=== PATIENT | female | born 1940 | race Caucasian/White ===

== ENCOUNTER → 2016-12-13 | Outpatient (REF) | payer MEDICARE, OTHER ==
[~2016-12-13] MED LIST: /ADVA50050; /MOXI40TA; ACIPHEX; ADVA115A INH; ATROVENT INH; CALCARB; DYAZ37.5; FOLI1TAB; FOLI1TAB2 PO; ICAPCAP PO; INFL10VL IV; MAXZTAB PO; METH2.5TA PO; METHOTREXATE SODIUM; PRED10TA PO; REMICADE; SIMV20TA2; SIMV20TA2 PO; SYNT50TA PO; TYLE650T25 PO; VENTOLIN NEB INH; VERA180C PO; VERAPAMIL; VIBR100C PO; VIT D; XOPEAER INH
== END ==
LOC: M SFHCPLAZ 14:15
PROVIDERS: ATTEND Nurse Practitioner Family
DX: E78.5 Hyperlipidemia, unspecified (principal); E03.9 Hypothyroidism, unspecified; Z53.8 Procedure and treatment not carried out for other reasons

== ENCOUNTER → 2017-05-18 | Outpatient (REF) | payer MEDICARE, OTHER ==
[~2017-05-18] MED LIST changes: -FOLI1TAB2 PO; +FOLI1TAB4 PO; +LEVAINH INH; -XOPEAER INH
[2017-05-19 12:35] LABS: ALBUMIN 3.4 GM/DL (3.2-5.2); ALBUMIN/GLOBULIN RATIO 0.77 (1.00-1.93); ALKALINE PHOSPHATASE 101 U/L (45-117); ALT/SGPT 12 U/L (12-78); ANION GAP 7 MEQ/L (8-16); AST/SGOT 18 U/L (15-37); BILIRUBIN,TOTAL 0.3 MG/DL (0.2-1.0); BLOOD UREA NITROGEN 14 MG/DL (7-18); CALCIUM LEVEL 9.5 MG/DL (8.8-10.2); CARBON DIOXIDE LEVEL 34 MEQ/L (21-32); CHLORIDE LEVEL 103 MEQ/L (98-107); CREATININE FOR GFR 0.86 MG/DL (0.55-1.02); FREE T4 0.88 NG/DL (0.76-1.46); GLOMERULAR FILTRATION RATE > 60.0 (>39); GLUCOSE, FASTING 93 MG/DL (83-110); POTASSIUM SERUM 3.6 MEQ/L (3.5-5.1); SODIUM LEVEL 144 MEQ/L (136-145); TOTAL PROTEIN 7.8 GM/DL (6.4-8.2)
== END ==
LOC: M SFHCPLAZ 14:15 → M SFHCCLAY 14:17
PROVIDERS: ATTEND Nurse Practitioner Family
DX: E78.5 Hyperlipidemia, unspecified (principal); E03.9 Hypothyroidism, unspecified

== ENCOUNTER → 2017-05-18 | Outpatient (CLI) | payer MEDICARE, OTHER ==
--- NOTE | 2017-05-18 18:20 | REP ---
CHEST, TWO VIEW: Two views of the chest are performed. Comparison 04/20/2016. Ill-defined parenchymal opacity is again seen in the right lower lobe. This has increased since the prior exam. Scattered interstitial fibrotic changes are seen elsewhere throughout both lungs with mild biapical pleural thickening. Heart is upper limits of normal in size. There is calcification and tortuosity of the thoracic aorta. The mediastinal silhouette is unchanged. There are mild degenerative changes of the spine. IMPRESSION: Increased ill-defined parenchymal opacity right lower lobe when compared to the prior study of 04/20/2017. Further evaluation may be made with chest CT.
== END ==
LOC: M CLY 14:22
PROVIDERS: ATTEND Internal Medicine Pulmonary Disease
DX: J44.9 Chronic obstructive pulmonary disease, unspecified (principal); E04.9 Nontoxic goiter, unspecified

== ENCOUNTER → 2017-06-16 | Outpatient (CLI) | payer MEDICARE, OTHER ==
--- NOTE | 2017-06-16 15:23 | REP ---
CT of the chest without IV contrast: Comparisons are the chest CT dated 06/21/2005 and PA and lateral plain film study dated 05/18/2017. There is marked septal thickening accompanied by numerous bulla throughout the entire right lower lobe and to a lesser extent upper lobe and lingula as a distinct change from the comparison CT, compatible with chronic fibrosis, acute interstitial infiltrates or acute on chronic disease. There is no pleural effusion. There is no focal infiltrates. There is no mediastinal lymph node enlargement. No axillary lymph node enlargement. The study is insensitive for hilar lymph node enlargement in the absence of intravenous contrast . There is a 8 mm nodule in the right middle lobe on image 69, not present previously. The unenhanced thoracic aorta is unremarkable. Cardiac size is normal. There is calcified atheroma in the coronary arteries. The visualized portions of the is liver, gallbladder, pancreas and spleen are unremarkable. There is calcified atheroma in the splenic artery and abdominal aorta. There is no adrenal mass. Impression: Advanced fibrosis versus interstitial infiltrates versus combination accompanied by numerous bulla in the right lower lobe as and to a lesser degree in the right upper lobe and lingula a distinct interval change 8 mm nodule in the lingula, not present previously. Signed by Raf Wilder MD 06/16/2017 03:14 P
== END ==
LOC: M RAD 10:09
PROVIDERS: ATTEND Internal Medicine Pulmonary Disease
DX: R91.8 Other nonspecific abnormal finding of lung field (principal)

== ENCOUNTER → 2017-09-09 | Outpatient (REF) | payer MEDICARE, OTHER ==
[~2017-09-09] MED LIST changes: +FISH100049 PO; +HYDR25TAB PO; +LIPI20TA PO; +PROAAER10 INH; +SULF500T2 PO; +TYLE325T5 PO; +VITA100067 PO
[2017-09-09 12:43] LABS: ALBUMIN 3.4 GM/DL (3.2-5.2); ALBUMIN/GLOBULIN RATIO 0.85 (1.00-1.93); ALKALINE PHOSPHATASE 84 U/L (45-117); ALT/SGPT 21 U/L (12-78); ANION GAP 10 MEQ/L (8-16); AST/SGOT 25 U/L (7-37); BILIRUBIN,TOTAL 0.3 MG/DL (0.2-1.0); BLOOD UREA NITROGEN 16 MG/DL (7-18); CALCIUM LEVEL 9.2 MG/DL (8.8-10.2); CARBON DIOXIDE LEVEL 27 MEQ/L (21-32); CHLORIDE LEVEL 104 MEQ/L (98-107); CHOLESTEROL LEVEL 194 MG/DL (<200); CREATININE FOR GFR 0.87 MG/DL (0.55-1.02); FREE T4 1.19 NG/DL (0.76-1.46); GLOMERULAR FILTRATION RATE > 60.0 (>39); GLUCOSE, FASTING 98 MG/DL (83-110); POTASSIUM SERUM 3.8 MEQ/L (3.5-5.1); SODIUM LEVEL 141 MEQ/L (136-145); TOTAL PROTEIN 7.4 GM/DL (6.4-8.2); TRIGLYCERIDES LEVEL 83 MG/DL (<150)
== END ==
LOC: M SFHCPLAZ 08:38
PROVIDERS: ATTEND Nurse Practitioner Family
DX: I10 Essential (primary) hypertension (principal); E03.9 Hypothyroidism, unspecified; E78.5 Hyperlipidemia, unspecified

== ENCOUNTER → 2017-09-15 | Day surgery (SDC) | payer MEDICARE, OTHER ==
[~2017-09-15] VITALS: Ht 157.5 cm; Wt 72.9 kg
[~2017-09-15] MED LIST changes: +ACETYLCHOLINE OPHTH SOLN 1% 2ML (MIOCHOL-E) As Ordered ONE; +BALANCED SALT IRRIGATION SOLUTION 500ML BAG (FOR OR EYE MACHINE) As Ordered ONE; +CEFUROXIME 1MG/0.1ML INTRACAMERAL INJ As Ordered ONE; +DUOVISC (0.50ML VISCOAT/0.55ML PROVISC) OPHTH KIT As Ordered ONE; +LIDOCAINE 0.75%/EPINEPHRINE 0.025% IN BSS 1ML SYR INTRACAMERAL (OR ONLY) As Ordered ONE; +MIDAZOLAM INJ 2 MG/2 ML VIAL (J2250) As Ordered ONE; +OFLOXACIN 0.3 % (OCUFLOX) OPTH SOL 5ML OS ONE; +PHENYLEPHRINE 2.5% OPHTH SOL 2ML OS ONE; +POVIDONE-IODINE 5% OPHTH PREP SOL 30ML As Ordered ONE; +PROPARACAINE 0.5% OPHTH SOL 15ML OS ONE; +TROPICAMIDE 1% OPHTH SOLN 2ML OS ONE; +fentaNYL 100 MCG/2 ML INJECTION (J3010) As Ordered ONE
[2017-09-15 14:10] VITALS: BP 137/77
--- NOTE | 2017-09-20 13:55 | RO ---
DATE OF PROCEDURE: 09/15/2017 PREOPERATIVE DIAGNOSIS: Visually significant nuclear sclerotic cataract left eye. POSTOPERATIVE DIAGNOSIS: Visually significant nuclear sclerotic cataract left eye. PROCEDURE: Cataract extraction with use of phacoemulsification and placement of intraocular lens, AU00T0, 21.0, left eye. SURGEON: Abilio Tomas DO [employer] OPERATOR: ANESTHESIA: Local with monitored anesthesia care (MAC). COMPLICATIONS: None. POSTOPERATIVE CONDITION: Stable. INDICATION FOR SURGERY: Blurred vision left eye affecting patient's activities of daily living. DESCRIPTION OF PROCEDURE: The patient was seen in the preoperative area and properly identified. The correct operative eye was identified and marked. Attention was turned to that eye. The patient received topical antibiotics in the preoperative area. The patient then received topical dilating drops consisting of tropicamide and phenylephrine. The patient was then transferred to the operating room. The correct side was re-identified. The patient received topical anesthetics and antibiotics on the surface of the eye. The eye was prepped and draped in a sterile fashion. The upper and lower eyelids were isolated with Tegaderm tape, and the lids were held open with an adjustable speculum. Using a sideport blade, a paracentesis incision was made. Intraocular preservative-free lidocaine was then injected into the anterior chamber. Viscoelastic was then injected into the anterior chamber through the paracentesis. Using a 2.4 mm sharp-tipped keratome, the anterior chamber was entered via a temporal clear corneal incision. A continuous curvilinear capsulorrhexis was created with the aid of a 26-gauge cystotome and Utrata forceps. Hydrodissection was performed with balanced salt solution (BSS) on a blunt cannula until the nucleus was freely mobile. The crystalline lens was phacoemulsified and aspirated. Additional cohesive viscoelastic was placed into the capsular bag to deepen it. An AU00T0 lens was placed into the capsular bag and confirmed by visualizing the continuous curvilinear capsulorrhexis. Additional irrigation and aspiration was used to remove cortical material and remaining viscoelastic. The clear corneal incision was hydrated with BSS on a blunt cannula. The lens was well positioned. The incisions were then tested for leaks and found to be negative. The eye was then palpated for appropriate pressure and adjusted accordingly with BSS. The eyelid speculum was carefully removed. A shield was placed over the eye. The patient tolerated the procedure well and was discharged to the recovery unit in a stable condition. [facility]
== END | disposition home or self-care (01) ==
LOC: M SDC 10:27
PROVIDERS: ATTEND Ophthalmology
DX: H25.12 Age-related nuclear cataract, left eye (principal); E03.9 Hypothyroidism, unspecified; M06.9 Rheumatoid arthritis, unspecified; E78.5 Hyperlipidemia, unspecified; H91.92 Unspecified hearing loss, left ear; M51.37 Other intervertebral disc degeneration, lumbosacral region; M15.0 Primary generalized (osteo)arthritis; E55.9 Vitamin D deficiency, unspecified; J44.9 Chronic obstructive pulmonary disease, unspecified; R32 Unspecified urinary incontinence; Z88.6 Allergy status to analgesic agent; Z79.899 Other long term (current) drug therapy; Z90.710 Acquired absence of both cervix and uterus; Z87.891 Personal history of nicotine dependence
CPT/HCPCS: 66984; J2250; J3010; V2632

== ENCOUNTER 2017-09-29 09:09 | Day surgery (SDC) | payer MEDICARE, OTHER ==
[~2017-09-29 09:09] MED LIST changes: -/ADVA50050; -/MOXI40TA; -ACETYLCHOLINE OPHTH SOLN 1% 2ML (MIOCHOL-E) As Ordered ONE; -ACIPHEX; -ADVA115A INH; -ATROVENT INH; -BALANCED SALT IRRIGATION SOLUTION 500ML BAG (FOR OR EYE MACHINE) As Ordered ONE; -CALCARB; -CEFUROXIME 1MG/0.1ML INTRACAMERAL INJ As Ordered ONE; -DUOVISC (0.50ML VISCOAT/0.55ML PROVISC) OPHTH KIT As Ordered ONE; -DYAZ37.5; -FISH100049 PO; -FOLI1TAB; -FOLI1TAB4 PO; -HYDR25TAB PO; -ICAPCAP PO; -INFL10VL IV; -LEVAINH INH; -LIDOCAINE 0.75%/EPINEPHRINE 0.025% IN BSS 1ML SYR INTRACAMERAL (OR ONLY) As Ordered ONE; -LIPI20TA PO; -MAXZTAB PO; -METH2.5TA PO; -METHOTREXATE SODIUM; +MIDAZOLAM INJ 2 MG/2 ML VIAL (J2250) As Ordered; -MIDAZOLAM INJ 2 MG/2 ML VIAL (J2250) As Ordered ONE; -OFLOXACIN 0.3 % (OCUFLOX) OPTH SOL 5ML OS ONE; -PHENYLEPHRINE 2.5% OPHTH SOL 2ML OS ONE; -POVIDONE-IODINE 5% OPHTH PREP SOL 30ML As Ordered ONE; -PRED10TA PO; -PROAAER10 INH; -PROPARACAINE 0.5% OPHTH SOL 15ML OS ONE; -REMICADE; -SIMV20TA2; -SIMV20TA2 PO; -SULF500T2 PO; -SYNT50TA PO; -TROPICAMIDE 1% OPHTH SOLN 2ML OS ONE; -TYLE325T5 PO; -TYLE650T25 PO; -VENTOLIN NEB INH; -VERA180C PO; -VERAPAMIL; -VIBR100C PO; -VIT D; -VITA100067 PO; -fentaNYL 100 MCG/2 ML INJECTION (J3010) As Ordered ONE
[2017-09-29] MEDS: OFLOXACIN 0.3 % (OCUFLOX) OPTH SOL 5ML OD (09:40)
[2017-09-29] MEDS: PROPARACAINE 0.5% OPHTH SOL 15ML OD (09:45)
[2017-09-29] MEDS: PHENYLEPHRINE 2.5% OPHTH SOL 2ML OD (09:50)
[2017-09-29] MEDS: TROPICAMIDE 1% OPHTH SOLN 2ML OD (09:55)
[2017-09-29] MEDS ORDERED: MIDAZOLAM INJ 2 MG/2 ML VIAL (J2250) As Ordered (10:59)
[2017-09-29] MEDS: POVIDONE-IODINE 5% OPHTH PREP SOL 30ML As Ordered (10:59)
[2017-09-29] MEDS: BALANCED SALT IRRIGATION SOLUTION 500ML BAG (FOR OR EYE MACHINE) As Ordered (11:03)
[2017-09-29] MEDS: CEFUROXIME 1MG/0.1ML INTRACAMERAL INJ As Ordered (11:03)
[2017-09-29] MEDS: DUOVISC (0.50ML VISCOAT/0.55ML PROVISC) OPHTH KIT As Ordered (11:03)
[2017-09-29] MEDS: ACETYLCHOLINE OPHTH SOLN 1% 2ML (MIOCHOL-E) As Ordered (11:03)
[2017-09-29] MEDS: LIDOCAINE 0.75%/EPINEPHRINE 0.025% IN BSS 1ML SYR INTRACAMERAL (OR ONLY) As Ordered (11:03)
[2017-09-29] MEDS ORDERED: ACETAMINOPHEN TAB 650MG DOSE (2X325MG) As Ordered (11:52)
[2017-09-29] MEDS: ACETAMINOPHEN TAB 650MG DOSE (2X325MG) PO (12:00)
[2017-09-29] MEDS ORDERED: ONDANSETRON 4MG/2ML VIAL (J2405) IV (12:00)
== END 2017-09-29 12:17 | disposition home or self-care (01) ==
LOC: M SDC 09:09
DX: H25.11 Age-related nuclear cataract, right eye (principal); M06.9 Rheumatoid arthritis, unspecified; E03.9 Hypothyroidism, unspecified; I10 Essential (primary) hypertension; E78.5 Hyperlipidemia, unspecified; Z87.891 Personal history of nicotine dependence; M51.37 Other intervertebral disc degeneration, lumbosacral region; E55.9 Vitamin D deficiency, unspecified; M19.90 Unspecified osteoarthritis, unspecified site; J44.9 Chronic obstructive pulmonary disease, unspecified; R32 Unspecified urinary incontinence; Z88.8 Allergy status to other drugs, medicaments and biological substances; Z79.899 Other long term (current) drug therapy; Z79.51 Long term (current) use of inhaled steroids
CPT/HCPCS: 66984

== ENCOUNTER 2017-12-11 11:32 | Emergency (ER) | payer MEDICARE, OTHER ==
[2017-12-11] MEDS ORDERED: FIORICET TAB PO (11:45)
[2017-12-11] MEDS: ASPIRIN 81 MG CHEW TABLET PO (11:45)
[2017-12-11 12:02] LABS: BASO % 0.4 % (0.0-1.0); EOS # 0.1 10^3/uL (0.0-0.50); EOS % 1.1 % (0.0-3.0); HEMATOCRIT 33.3 % (36.0-47.0); HEMOGLOBIN 10.5 g/dl (12.0-16.0); IMMATURE GRANULOCYTE % 0.4 % (0-3.0); LYMPH # 1.4 10^3/uL (1.5-4.5); LYMPH % 14.5 % (24.0-44.0); MEAN CORPUSCULAR HEMOGLOBIN 29.2 pg (27.0-33.0); MEAN CORPUSCULAR HGB CONC 31.5 g/dl (32.0-36.5); MEAN CORPUSCULAR VOLUME 92.8 fl (80.0-96.0); MONO # 0.6 10^3/uL (0.0-0.8); MONO % 6.6 % (0.0-5.0); NEUTROPHILS # 7.2 10^3/uL (1.8-7.7); PLATELET COUNT, AUTOMATED 305 10^3/uL (150-450); RED BLOOD COUNT 3.59 10^6/uL (4.00-5.40); RED CELL DISTRIBUTION WIDTH 17.1 % (11.5-14.5); WHITE BLOOD COUNT 9.4 10^3/uL (4.0-10.0)
[2017-12-11 12:24] LABS: ANION GAP 10 MEQ/L (8-16); BLOOD UREA NITROGEN 14 MG/DL (7-18); CALCIUM LEVEL 9.1 MG/DL (8.8-10.2); CARBON DIOXIDE LEVEL 30 MEQ/L (21-32); CHLORIDE LEVEL 102 MEQ/L (98-107); CPK CREATINE PHOSPHOKINASE 77 U/L (26-192); CREATININE FOR GFR 0.95 MG/DL (0.55-1.30); GLOMERULAR FILTRATION RATE > 60.0 (>39); GLUCOSE, FASTING 139 MG/DL (70-100); POTASSIUM SERUM 3.1 MEQ/L (3.5-5.1); SODIUM LEVEL 142 MEQ/L (136-145); TROPONIN I 0.55 NG/ML (< 0.10)
[2017-12-11 12:25] LABS: ALBUMIN/GLOBULIN RATIO 0.67 (1.00-1.93); ALKALINE PHOSPHATASE 122 U/L (45-117); ALT/SGPT 32 U/L (12-78); AST/SGOT 36 U/L (7-37); BILIRUBIN,DIRECT 0.1 MG/DL (0.0-0.2); BILIRUBIN,TOTAL 0.5 MG/DL (0.2-1.0); CK-MB VALUE MASS 2.4 NG/ML (0.0-3.6); MB/CK RELATIVE INDEX 3.11 (< OR =4); NT-PRO BNP 11782 PG/ML (<450); TOTAL PROTEIN 7.5 GM/DL (6.4-8.2)
[2017-12-11] MEDS: FUROSEMIDE 100 MG/10 ML VIAL (J1940) IV (13:50)
[2017-12-11] MEDS ORDERED: ISOVUE-370 76% 100ML VIAL (Q9967) As Ordered (14:05)
[2017-12-11 14:16] LABS: CPK CREATINE PHOSPHOKINASE 100 U/L (26-192); TROPONIN I 0.91 NG/ML (< 0.10)
[2017-12-11 19:04] LABS: ALBUMIN 2.9 GM/DL (3.2-5.2); ANION GAP 10 MEQ/L (8-16); BLOOD UREA NITROGEN 13 MG/DL (7-18); CALCIUM LEVEL 8.4 MG/DL (8.8-10.2); CARBON DIOXIDE LEVEL 32 MEQ/L (21-32); CHLORIDE LEVEL 100 MEQ/L (98-107); CREATININE FOR GFR 0.85 MG/DL (0.55-1.30); GLOMERULAR FILTRATION RATE > 60.0 (>39); GLUCOSE, FASTING 111 MG/DL (70-100); MAGNESIUM LEVEL 1.8 MG/DL (1.8-2.4); PHOSPHORUS LEVEL 3.5 MG/DL (2.5-4.9); POTASSIUM SERUM 3.2 MEQ/L (3.5-5.1); SODIUM LEVEL 142 MEQ/L (136-145)
[2017-12-11] MEDS: CLOPIDOGREL 75 MG TAB PO (19:20)
[2017-12-11] MEDS: HEPARIN SOD (PORCINE) 5000 UNITS/ML VIAL IV (19:21)
[2017-12-11] MEDS: HEPARIN DRIP 25,000 UNITS in APPROPRIATE DILUENT 1 EA IV (19:21)
== END 2017-12-11 20:24 | disposition short-term general hospital (02) ==
LOC: M ED 11:32
DX: I21.4 Non-ST elevation (NSTEMI) myocardial infarction (principal); I24.9 Acute ischemic heart disease, unspecified; I50.9 Heart failure, unspecified; I34.0 Nonrheumatic mitral (valve) insufficiency; J90 Pleural effusion, not elsewhere classified; R94.31 Abnormal electrocardiogram [ECG] [EKG]; I11.0 Hypertensive heart disease with heart failure; J44.9 Chronic obstructive pulmonary disease, unspecified; Z87.891 Personal history of nicotine dependence; Z88.8 Allergy status to other drugs, medicaments and biological substances; Z79.899 Other long term (current) drug therapy; Z79.51 Long term (current) use of inhaled steroids
CPT/HCPCS: Q9967